=== PATIENT | female | born 1965 | race Caucasian/White ===

== ENCOUNTER → 2019-01-27 | Day surgery (SDC) | payer BC ==
[~2019-01-27] MED LIST: BUPIVACAINE HCL 0.5% INJ 30 ML VIAL INJ ONE; CAL/MAG/ZINC PO; CEFAZOLIN SOD 1 GM/NS 50ML 50 ML IV ONE; DEXAMETHASONE SOD PHOS INJ 4 MG/ML VIAL ONE; FENTANYL CITRATE/PF 100MCG/2 ML INJ ONE; FISH OIL 1,0001 EAC2 PO; LIDOCAINE HCL 2% LOCAL INJ 5 ML SDV VIAL INJ ONE; MIDAZOLAM HCL 2 MG/2 ML VIAL ONE; MULTI-VITAMIN1 EACH PO; MUPIROCIN 2% OINT 22 GM TUBE ONE; ONDANSETRON HCL INJ 2MG/ML 2ML 2 MG/ML VIAL ONE; PROPOFOL IV EMULSION 10 MG/ML 20 ML VIAL ONE; SCOPOLAMINE 1.5 MG PATCH ONE; SEVOFLURANE INHAL SOLN 250 ML PEN BTL ONE; VIT D3 PO
--- OUTSIDE RECORDS SUMMARY | 2019-01-27 06:24 | XMS REPORT | Clinical Summary ---
Author Author [facility] Address Unknown Phone Unavailable Care Team Providers Care Cushion Builder Name Role Phone Lavinia Baltazar PCP Allergies Comments Active Allergy Reactions Severity Noted Date Codeine Itching High 11/29/2016 Medications No known medications Active Problems No known active problems Family History Medical History Relation Name Comments Heart attack Father Cancer Mother Relation Name Status Comments Father Alive Mother Alive Social History Date Tobacco Use Types Packs/Day Years Used Never Smoker Smokeless Tobacco: Never Used Alcohol Use Drinks/Week oz/Week Comments Yes 3 Glasses of 1.8 wine Sex Assigned at Date Recorded Not on file Industry Job Start Date Occupation Not on file Not on file Not on file Travel End Travel History Travel Start No recent travel history available. Last Filed Vital Signs Not on file Plan of Treatment Health Maintenance Due Date Last Done Comments CERVICAL CANCER SCREENING 1988 BREAST CANCER SCREENING 2017 COLON CANCER SCREENING 2017 SHINGLES VACCINES (#1) 2017 INFLUENZA VACCINE 05/21/2019 Results Not on fileafter 01/26/2018 Insurance Payer Benefit Subscriber ID Type Phone Address Plan / Group BCBS BCBS xxxxxxxxxxxx PPO CHOICE PPO/[employer] PPO Advance Directives Patient has advance care planning documents on file. For more information, mili moon contact: Ruy Plummer [address] [place] [address]
--- NOTE | 2019-01-27 09:47 | NUR ---
SPIRITUAL CARE - Pre-Surgery Assessment: Pt in bed. Pt's boyfriend at bedside. Pt reported supportive attention from family and friends. Intervention: I provided pastoral presence, hospitality, sympathetic listening, and prayer. I acquainted pt with availability of psychologist engineering while hospitalized. Outcome: Pt expressed appreciation for visit. No need for follow up indicated at this time. [facility] Spiritual Care Department O: [phone] Pager: [phone] ([phone] calling from) Addendum: 01/27/19 at 0948 by Henrik Mason CHAP CORRECTION: This visit took place at approx. 0710.
[2019-01-27 09:50] VITALS: BP 101/82
--- NOTE | 2019-01-27 16:03 | Operative Report ---
DATE OF PROCEDURE: 01/27/2019 SURGEON: Jerman Montiel MD PREOPERATIVE DIAGNOSIS: Ganglion cyst, right wrist. POSTOPERATIVE DIAGNOSIS: Ganglion cyst, right CMC joint. ANESTHESIA: General. PROCEDURE: Excision of ganglion cyst, right CMC joint. HISTORY: The patient is a 53-year-old right-hand dominant female, who has a symptomatic enlarging cyst located at the base of the right thumb. The risks, benefits, and alternatives of treatment were discussed with the patient. She is prepared to undergo the procedure as outlined. DESCRIPTION OF PROCEDURE: The patient was marked preoperatively in the holding area. She was brought to the operating theater, and after the induction of adequate general anesthesia, she was prepped and draped in a supine position. A time-out was performed. An incision was marked out over the CMC joint, extending distally over the border between the thenar and the dorsal skin and then proximally over the volar wrist. Right upper extremity was exsanguinated and the tourniquet inflated to a pressure of 250 mmHg. The incision was made through the skin and subcutaneous tissue. Venous tributaries were controlled with bipolar cautery. The branches of the radial and sensory nerve were identified, retracted, and preserved. The FCR tendon is dissected down onto directly and identified. The cyst is located radial to the FCR tendon. Overlying the cyst is the volar branch of the radial artery. This was dissected free and then ligated and tied with 4-0 Vicryl sutures. At this point, the tissue overlying the cyst is dissected and the cyst was identified emanating from the CMC joint. The cyst was dissected on all sides and then is removed and sent for permanent pathologic examination. The rent in the joint capsule was then closed with a 4-0 Vicryl in a [id number] fashion. The wound is irrigated and closed with a 5-0 nylon in an interrupted horizontal mattress fashion. A Marcaine field block was performed at the operative site. Tourniquet was deflated. All the fingers pinked up nicely. The wound was noted to be hemostatic. A sterile bulking Confirming bandage was applied. The patient tolerated the procedure well, was brought to recovery room in satisfactory condition and discharged with a postoperative instruction sheet as well as a followup appointment. MD NICK Limon/MODL /[id number]
== END | disposition home or self-care (01) ==
LOC: OR 06:22
PROVIDERS: ATTEND Plastic Surgery
DX: M67.441 Ganglion, right hand (principal); Z88.6 Allergy status to analgesic agent; Z01.810 Encounter for preprocedural cardiovascular examination
CPT/HCPCS: 26160; 88304; 93005; J0690; J1100; J2001; J2250; J2405; J2704